=== PATIENT | male | born 1990 | race Caucasian/White ===

== ENCOUNTER 2020-02-06 20:25 | Emergency (ER) | payer BC ==
[~2020-02-06] VITALS: Ht 167.6 cm; Wt 83.9 kg
[2020-02-06 20:30] VITALS: BP 142/100
[2020-02-06] MEDS ORDERED: KETOROLAC 30 MG/ML VIAL IVP STA (20:42)
[2020-02-06] MEDS ORDERED: ONDANSETRON 4 MG/2 ML VIAL IVP STA (20:42)
[2020-02-06] MEDS ORDERED: MORPHINE SULFATE 4 MG/ML SYR IVP STA (20:42)
--- NOTE | 2020-02-06 20:45 | NUR ---
PT AMBULATED TO BED 05.
--- NOTE | 2020-02-06 21:00 | NUR ---
PT TAKEN TO CT VIA WHEELCHAIR.
[2020-02-06 21:13] LABS: BASOPHILS # (AUTO) 0.1 K/uL (0.00-0.22); BASOPHILS % (AUTO) 0.5 % (0.0-2.0); EOSINOPHILS # (AUTO) 0.1 K/uL (0-0.4); EOSINOPHILS % (AUTO) 0.7 % (0.0-4.0); HEMATOCRIT 43.5 % (36-52); HEMOGLOBIN 14.8 g/dL (12.0-18.0); LYMPHOCYTES # (AUTO) 3.2 K/uL (2.0-11.5); MEAN CORPUSCULAR HEMOGLOBIN 29 pg (27-31); MEAN CORPUSCULAR HGB CONC 34 g/dL (33-37); MEAN CORPUSCULAR VOLUME 84.2 fL (80-94); MONOCYTES # (AUTO) 0.9 K/uL (0.8-1.0); MONOCYTES % (AUTO) 6.6 % (1.7-9.3); NEUTROPHILS # (AUTO) 9.6 K/uL (1.8-7.7); NEUTROPHILS % (AUTO) 69.2 % (42.2-75.2); PLATELET COUNT (AUTO) 392 K/uL (140-450); RED BLOOD CELL COUNT(AUTO) 5.17 MIL/uL (4.20-6.10); RED CELL DISTRIBUTION WIDTH 12.4 % (11.6-13.7); WHITE BLOOD COUNT (AUTO) 13.9 K/uL (4.8-10.8)
[2020-02-06 21:28] LABS: ALBUMIN 4.7 g/dL (3.4-5.0); ANION GAP 13.7 (8-16); CARBON DIOXIDE 27.8 mmol/L (21-32); CREATININE 1.4 mg/dL (0.6-1.3); POTASSIUM 3.5 mmol/L (3.5-5.1); TOTAL BILIRUBIN 0.7 mg/dL (0.0-1.0)
--- NOTE | 2020-02-06 21:30 | NUR ---
30 Y/O MALE PRESENTS TO ER WITH C/O RIGHT FLANK PAIN W/O RADIATION X 3 HRS. 9/10 PAIN. AAO X4, VSS, R/R EQUAL, AND UNLABORED. PT ALSO C/O DYSURIA. PT DENIES N/V/D, SOB, TRAUMA/INJURY TO AREA, FEVER, CHILLS, HEMATURIA, TTP AT RT FLANK. SIDE RAIL X1, BED IN LOW POSITION, WILL CONTINUE TO MONITOR. NKDA PMH: HTN; ASTHMA
[2020-02-06] MEDS ORDERED: NACL 0.9% 1,000 ML IV ONE (21:55)
--- NOTE | 2020-02-06 22:36 | NUR ---
PT RESTING QUIETLY IN BED. VSS, R/R EQUAL, AND UNLABORED. PT POSITIONED FOR COMFORT. HOB ELEVATED, BED IN LOW POSITION, SIDE RAIL X1, WILL CONTINUE TO MONITOR.
[2020-02-06] MEDS ORDERED: cefTRIAXone 1,000 MG VIAL ONE (22:38)
[2020-02-06 22:49] LABS: APPEARANCE,URINE HAZY (CLEAR); BILIRUBIN,URINE 1+ (NEGATIVE); BLOOD, URINE 3+ (NEGATIVE); COLOR,URINE YELLOW (YELLOW); LEUKOCYTE ESTERASE ,URINE NEGATIVE (NEGATIVE); NITRITE, URINE NEGATIVE (NEGATIVE); UGLUCOSE NEGATIVE (NEGATIVE)
[2020-02-06 23:08] LABS: RBC,URINE 11-20 (MOD) /HPF (0-5); WBC,URINE 0-5 /HPF (0-5)
[2020-02-06 23:10] LABS: CALCIUM OXALATE CRYSTALS,UR 0-10 /HPF (None Seen)
[2020-02-06 23:30] VITALS: BP 142/100
--- NOTE | 2020-02-06 23:30 | NUR ---
Patient discharged with v/s stable. Written and verbal after care instructions given and explained. Patient alert, oriented and verbalized understanding of instructions. Ambulatory with steady gait. All questions addressed prior to discharge. ID band removed. Patient advised to follow up with PMD. Rx of MOTRIN, TYLENOL given. Patient educated on indication of medication including possible reaction and side effects. Opportunity to ask questions provided and answered.
== END 2020-02-06 23:30 | disposition home or self-care (01) ==
LOC: MED 20:25
DX: R10.31 Right lower quadrant pain (principal); N17.9 Acute kidney failure, unspecified
CPT/HCPCS: 36415; 74176; 80053; 81001; 83690; 85025; 87086; 96365; 96375; 99284; J0696; J1885; J2270; J2405

== ENCOUNTER 2020-02-10 04:00 | Emergency (ER) | payer BC ==
[~2020-02-10] VITALS: Ht 167.6 cm; Wt 83.9 kg
[2020-02-10 04:02] VITALS: BP 128/90
[2020-02-10] MEDS ORDERED: KETOROLAC 30 MG/ML VIAL IVP ONE (04:20)
[2020-02-10] MEDS ORDERED: NACL 0.9% 1,000 ML IV ONE (04:20)
--- NOTE | 2020-02-10 04:28 | NUR ---
PT WAS SEEN HERE 02/05 WITH C/O OF FLANK PAIN AND DX WITH KIDNEY STONES. PT COMING IN TODAY C/O RLQ PAIN 12/26, SHARP PAIN THAT STARTED YESTERDAY. PT DENIES ANY N/V BUT STATES HE HAS DIARRHEA. HE ALSO C/O BURNING WITH URINATION AND STRUGGLES TO URINATE, ONLY DRIBBLES WHEN TRYING. AFEBRILE AT THIS TIME. PT STATES HE TOOK A NORCO AT HOME AND HAD NO RELIEF. BED IN LOWEST POSITION, SIDERAIL UP X 1. NKA HX - ASTHMA, HTN
--- NOTE | 2020-02-10 04:29 | NUR ---
XRAY HERE TO TAKE PT, TRANSPORT VIA WHEELCHAIR
--- NOTE | 2020-02-10 04:50 | NUR ---
URINE COLLECTED AND TAKEN TO LAB
[2020-02-10 05:06] LABS: APPEARANCE,URINE CLEAR (CLEAR); BILIRUBIN,URINE NEGATIVE (NEGATIVE); BLOOD, URINE 2+ (NEGATIVE); COLOR,URINE YELLOW (YELLOW); LEUKOCYTE ESTERASE ,URINE NEGATIVE (NEGATIVE); NITRITE, URINE NEGATIVE (NEGATIVE); UGLUCOSE NEGATIVE (NEGATIVE)
[2020-02-10 05:15] LABS: RBC,URINE 11-20 (MOD) /HPF (0-5); WBC,URINE 0-5 /HPF (0-5)
--- NOTE | 2020-02-10 05:15 | NUR ---
PT STATES PAIN IS BETTER, RATES IT NOW 07/26
--- NOTE | 2020-02-10 05:57 | NUR ---
PT UP AND AMBULATED TO RESTROOM.
[2020-02-10 07:02] VITALS: BP 121/89
--- NOTE | 2020-02-10 07:03 | NUR ---
Patient discharged with v/s stable. Written and verbal after care instructions given and explained. Patient alert, oriented and verbalized understanding of instructions. Ambulatory with steady gait. All questions addressed prior to discharge. ID band removed. Patient advised to follow up with PMD. Rx of MINERAL OIL AND MIRALAX given. Patient educated on indication of medication including possible reaction and side effects. Opportunity to ask questions provided and answered.
== END 2020-02-10 07:02 | disposition home or self-care (01) ==
LOC: MED 04:00
DX: R31.9 Hematuria, unspecified (principal); K59.00 Constipation, unspecified; J45.909 Unspecified asthma, uncomplicated; I10 Essential (primary) hypertension
CPT/HCPCS: 74022; 81001; 96361; 96374; 99284; J1885; J7030